=== PATIENT | male | born 1975 | race Caucasian/White ===

== ENCOUNTER 2017-09-18 11:23 | Observation (INO) | payer MEDICARE ==
--- NOTE | 2017-09-18 11:40 | PDOC ---
History of Present Illness - General History Source: Patient Exam Limitations: No Limitations - History of Present Illness Initial Comments: 09/18/17 14:14 Patient is a 42 year old male with a significant past medical history of 2 minor strokes, open heart surgery, who presents to the ED with complaints of chest pain that began this morning. Patient reports finding out 3 years ago that he had condition since of Bicuspid Aortic valve, due to a dental infection. He reports undergoing open heart surgery to have pig valve inserted. Patient reports waking up this morning and experiencing slight chest tightness while getting up for work that he states began to worry him. He reports taking one dose of 81 mg Baby Aspirin for pain with minimal relief. Patient states he experiencing irregular heartbeat, fluttering and left arm uncomfortability that prompted him to come into the ED. He reports having a prescription 80 mg of methadone, stating that he did not take his medication before coming. Denies nausea vomiting. Denies fevers chills. Denies contact with sick contacts , out of state travelling. Denies any other symptoms. Allergies: None Social history: Current smoker (4 cigarettes per day). Social drinking. Surgical history: Open heart surgery. Appendectomy PMD: None <Kvng Harris - Last Filed: 09/18/17 14:13> <Marialuisa Waters - Last Filed: 09/18/17 14:30> - General Chief Complaint: Chest Pain Stated Complaint: CHEST PAIN Time Seen by Provider: 09/18/17 11:40 Past History <Kvng Harris - Last Filed: 09/18/17 14:13> <Marialuisa Waters - Last Filed: 09/18/17 14:30> - Past Medical History Allergies/Adverse Reactions: Allergies Allergy/AdvReac Type Severity Reaction Status Date / Time No Known Allergies Allergy Verified 09/18/17 11:41 Home Medications: Ambulatory Orders Methadone [Dolophine -] 80 mg PO DAILY 09/18/17 Review of Systems - Review of Systems Able to Perform ROS?: Yes Comments:: 09/18/17 14:14 GENERAL/CONSTITUTIONAL: No fever or chills. No weakness. HEAD, EYES, EARS, NOSE AND THROAT: No change in vision. No ear pain or discharge. No sore throat. CARDIOVASCULAR: +Chest pain. +chest fluttering No shortness of breath. RESPIRATORY: No cough, wheezing, or hemoptysis. GASTROINTESTINAL: No nausea, vomiting, diarrhea or constipation. GENITOURINARY: No dysuria, frequency, or change in urination. MUSCULOSKELETAL: No joint or muscle swelling or pain. No neck or back pain. SKIN: No rash NEUROLOGIC: No headache, vertigo, loss of consciousness, or change in strength/ sensation. ENDOCRINE: No increased thirst. No abnormal weight change. HEMATOLOGIC/LYMPHATIC: No anemia, easy bleeding, or history of blood clots. ALLERGIC/IMMUNOLOGIC: No hives or skin allergy. All Other Systems: Reviewed and Negative <Kvng Harris - Last Filed: 09/18/17 14:13> *Physical Exam - Vital Signs Last Vital Signs Temp Pulse Resp BP Pulse Ox 97.7 F 86 20 136/89 100 09/18/17 11:36 09/18/17 12:02 09/18/17 12:02 09/18/17 12:02 09/18/17 13:56 - Physical Exam Comments: 09/18/17 14:14 GENERAL: Awake, alert, and fully oriented, in no acute distress HEAD: No signs of trauma EYES: PERRLA, EOMI, sclera anicteric, conjunctiva clear ENT: Auricles normal inspection, hearing grossly normal, nares patent, oropharynx clear without exudates. Moist mucosa NECK: Normal ROM, supple, no lymphadenopathy, JVD, or masses LUNGS: Breath sounds equal, clear to auscultation bilaterally. No wheezes, and no crackles HEART: +2/6 systolic murmur loudest over aortic valve Regular rate and rhythm, normal S1 and S2, no murmurs, rubs or gallops ABDOMEN: Soft, nontender, normoactive bowel sounds. No guarding, no rebound. No masses EXTREMITIES: Normal range of motion, no edema. No clubbing or cyanosis. No cords, erythema, or tenderness NEUROLOGICAL: Mood affect normal. Cranial nerves II through XII grossly intact. Normal speech, normal gait SKIN: Warm, Dry, normal turgor, no rashes or lesions noted. <Kvng Harris - Last Filed: 09/18/17 14:13> ED Treatment Course - LABORATORY CBC & Chemistry Diagram: 09/18/17 12:40 09/18/17 12:40 - ADDITIONAL ORDERS Additional order review: Laboratory Results 09/18/17 12:40 Sodium 138 Potassium 3.9 Chloride 104 Carbon Dioxide 25 Anion Gap 9 BUN 14 Creatinine 0.9 Creat Clearance w eGFR > 60 Random Glucose 123 H Calcium 7.9 L Total Bilirubin 0.4 AST 17 ALT 23 Alkaline Phosphatase 71 Creatine Kinase 242 Creatine Kinase Index 1.2 CK-MB (CK-2) 2.919 Troponin I < 0.02 Total Protein 6.7 Albumin 3.6 09/18/17 12:40 RBC 4.51 MCV 88.5 MCHC 33.3 RDW 13.7 MPV 8.4 Neutrophils % 58.7 Lymphocytes % 25.5 Monocytes % 8.1 Eosinophils % 7.1 H Basophils % 0.6 - Medications Given in the ED: ED Medications Discontinued Medications Generic Name Dose Route Start Last Admin Trade Name Freq PRN Reason Stop Dose Admin Aspirin 81 mg 09/18/17 12:16 09/18/17 12:30 Asa - PO 09/18/17 12:17 81 mg ONCE ONE Administration Methadone HCl 80 mg 09/18/17 12:43 09/18/17 13:05 Dolophine - PO 09/18/17 12:44 80 mg ONCE ONE Administration <Kvng Harris - Last Filed: 09/18/17 14:13> - LABORATORY CBC & Chemistry Diagram: 09/18/17 12:40 09/18/17 12:40 <Marialuisa Waters - Last Filed: 09/18/17 14:30> Medical Decision Making - Medical Decision Making 09/18/17 14:28 Pt presents to the ED complaining of substernal chest pain that started last night and is accompanied by mild shortness of breath. Concerning for valve leakage, less likely ACS. Patient appears comfortable on exam, unlikely to be acute valve rupture, but given the patient's history, will admit for observation and ECHO to rule out leaking valve. <Marialuisa Waters - Last Filed: 09/18/17 14:30> *DC/Admit/Observation/Transfer - Attestations Scribe Attestion: 09/18/17 14:14 Documentation prepared by Kvng Harris, acting as medical director for Marialuisa Waters MD, /DO. <Kvng Harris - Last Filed: 09/18/17 14:13> - Discharge Dispostion Admit: Yes <Marialuisa Waters - Last Filed: 09/18/17 14:30> Diagnosis at time of Disposition: Chest pain Qualifiers: Chest pain type: unspecified Qualified Code(s): R07.9 - Chest pain, unspecified - Discharge Dispostion Condition at time of disposition: Good
[2017-09-18] MEDS ORDERED: ASPIRIN 81 MG CHEWABLE TABLETS PO ONE (12:16)
[2017-09-18] MEDS ORDERED: ASPIRIN 81 MG CHEWABLE TABLETS ONE (12:30)
[2017-09-18] MEDS ORDERED: METHADONE HCL 10 MG TABLET PO ONE (12:43)
[2017-09-18 12:51] LABS: BASO % 0.6 % (0-2.0); EOS % 7.1 % (0-4.5); HEMATOCRIT 39.9 % (35.4-49); HEMOGLOBIN 13.3 GM/dL (11.7-16.9); LYMPH % 25.5 % (8-40); MCH 29.5 pg (25.7-33.7); MCHC 33.3 g/dl (32.0-35.9); MEAN CELL VOLUME 88.5 fl (80-96); MEAN PLT VOLUME 8.4 fl (7.5-11.1); MONO % 8.1 % (3.8-10.2); NEUT % 58.7 % (42.8-82.8); PLATELET COUNT 197 K/MM3 (134-434); RBC 4.51 M/mm3 (4.00-5.60); RDW 13.7 % (11.9-15.9); WHITE BLOOD COUNT 9.2 K/mm3 (4.0-10.0)
[2017-09-18] MEDS ORDERED: METHADONE HCL 40 MG DISPERSABLE TABLET ONE (13:02)
[2017-09-18 13:10] LABS: ALBUMIN 3.6 g/dl (3.4-5.0); ANION GAP 9 (8-16); BLOOD UREA NITROGEN 14 mg/dL (7-18); CALCIUM 7.9 mg/dL (8.5-10.1); CHLORIDE 104 mmol/L (98-107); CO2 25 mmol/L (21-32); GLUCOSE,RANDOM 123 mg/dL (74-106); POTASSIUM 3.9 mmol/L (3.5-5.1); SGPT/ALT 23 U/L (12-78); SODIUM 138 mmol/L (136-145)
[2017-09-18 13:15] LABS: ALK PHOS 71 U/L (45-117); BILIRUBIN,TOTAL 0.4 mg/dL (0.2-1.0); CREATININE 0.9 mg/dL (0.7-1.3); SGOT/AST 17 U/L (15-37); TOT PROT 6.7 g/dl (6.4-8.2)
--- NOTE | 2017-09-18 15:12 | EKG ---
Test Reason : Blood Pressure : / mmHG Vent. Rate : 090 BPM Atrial Rate : 090 BPM P-R Int : 118 ms QRS Dur : 108 ms QT Int : 394 ms P-R-T Axes : 040 -02 001 degrees QTc Int : 481 ms NORMAL SINUS RHYTHM INCOMPLETE RIGHT BUNDLE BRANCH BLOCK MODERATE VOLTAGE CRITERIA FOR LVH, MAY BE NORMAL VARIANT BORDERLINE ECG NO PREVIOUS ECGS AVAILABLE Confirmed by MD SARI, ABBIE ([id number]) on 09/18/2017 3:12:54 PM Referred By: Confirmed By:ABBIE GUO MD
--- NOTE | 2017-09-18 15:19 | HP ---
CHIEF COMPLAINT: "I have chest pain" PCP: None HISTORY OF PRESENT ILLNESS: This is a 42 yo M with PMH of bicuspid AV repair with bovine valve 3 yrs ago in [place], who presents to ED due to new onset CP since last night. Pain started suddenly last night after dinner, was midsternal, sharp, constant, nonreproducible, 6/10, radiating to L jaw and LUE with finger tingling but w/o diaphoresis or sob. He also reports palpitations and sensation of irregular heart rate. He denies pleuritic symptoms or exacerbation with activity. He has never had this sensation before. He reports frequent postprandial heartburn relieved by tums, but denies similarity in symptoms. He took asa 81 last night, which he takes daily, w/o relief. Pain continued until this morning, and almost subsided arrival to ED. 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 He reports history of early sudden in several uncles in their 30's and 40's due to cardiac causes. He reports unintentional weight loss of 10 lb over past 2 mo due to loss of appetite, heat/cold intolerance and hair thinning over the past 3 yrs. He denies orthopnea, LE edema, syncope, exercise intolerance, recent uri, cough , n/v, diarrhea, constipation, dysuria, melena, hemoptysis. 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 No insurance Smoking: daily smoker <pack/day Alcohol: drinks 4-5 beers on weekends Drugs: denies Family History: as above Allergies No Known Allergies Allergy (Verified 09/18/17 11:41) HOME MEDICATIONS: Home Medications Medication Instructions Recorded Aspirin [ASA -] 81 mg PO DAILY 09/18/17 Methadone [Dolophine -] 80 mg PO DAILY 09/18/17 REVIEW OF SYSTEMS CONSTITUTIONAL: Absent: fever, chills, diaphoresis, generalized weakness, malaise HEENT: Absent: rhinorrhea, nasal congestion, throat pain, throat swelling, difficulty swallowing CARDIOVASCULAR: Absent: syncope, lightheadedness, peripheral edema RESPIRATORY: Absent: cough, shortness of breath, dyspnea with exertion, orthopnea, wheezing, stridor, hemoptysis GASTROINTESTINAL: Absent: abdominal pain, abdominal distension, nausea, vomiting, diarrhea, constipation, melena, hematochezia GENITOURINARY: Absent: dysuria MUSCULOSKELETAL: Absent: back pain, neck pain SKIN: Absent: rash, itching, pallor HEMATOLOGIC/IMMUNOLOGIC: Absent: easy bleeding, easy bruising ENDOCRINE: + unexplained weight loss, heat intolerance, cold intolerance NEUROLOGIC: Absent: headache, focal weakness or paresthesias, PSYCHIATRIC: Absent: depression +anxiety PHYSICAL EXAMINATION Vital Signs - 24 hr 09/18/17 09/18/17 09/18/17 11:36 12:02 13:56 Temperature 97.7 F Pulse Rate 74 Pulse Rate [ 86 Left Radial] Respiratory 22 20 Rate Blood Pressure 139/87 Blood Pressure 136/89 [Left Arm] O2 Sat by Pulse 100 100 100 Oximetry (%) GENERAL: Awake, alert, and fully oriented, in no acute distress. HEAD: Normal with no signs of trauma. EYES: Pupils equal, round and reactive to light, extraocular movements intact, sclera anicteric, conjunctiva clear. No lid lag. EARS, NOSE, THROAT: Moist mucous membranes. NECK: supple without JVD or thyromegaly, o hepatojugular reflex LUNGS: Breath sounds equal, clear to auscultation bilaterally. HEART: Regular rate and rhythm, normal S1 and S2, grade II systolic ej murmur ABDOMEN: Soft, nontender, not distended, normoactive bowel sounds, no guarding, no rebound, no masses. MUSCULOSKELETAL: No CVA tenderness. UPPER EXTREMITIES: 2+ pulses, warm, well-perfused. No peripheral edema. LOWER EXTREMITIES: 2+ pulses, warm, well-perfused. No calf tenderness. No peripheral edema. NEUROLOGICAL: Cranial nerves II-XII grossly intact. Normal speech. PSYCHIATRIC: Cooperative. Good eye contact. Appropriate mood and affect. SKIN: Warm, dry Laboratory Results - last 24 hr 09/18/17 09/18/17 12:40 12:40 WBC 9.2 RBC 4.51 Hgb 13.3 Hct 39.9 MCV 88.5 MCH 29.5 MCHC 33.3 RDW 13.7 Plt Count 197 MPV 8.4 Neutrophils % 58.7 Lymphocytes % 25.5 Monocytes % 8.1 Eosinophils % 7.1 H Basophils % 0.6 Sodium 138 Potassium 3.9 Chloride 104 Carbon Dioxide 25 Anion Gap 9 BUN 14 Creatinine 0.9 Creat Clearance w eGFR > 60 Random Glucose 123 H Calcium 7.9 L Total Bilirubin 0.4 AST 17 ALT 23 Alkaline Phosphatase 71 Creatine Kinase 242 Creatine Kinase Index 1.2 CK-MB (CK-2) 2.919 Troponin I < 0.02 Total Protein 6.7 Albumin 3.6 ASSESSMENT/PLAN: This is a 42 yo M with PMH of bicuspid AV repair with bovine valve 3 yrs ago in [place], who presents to ED due to new onset CP since last night. Chest pain h/o bioprosthetic AV repair -ekg no evidence of ACS, +LVH, incomplete RBBB; repeat AM -trop - x1, trend x 3 -r/o endocrine and electrolyte abnormality; f/u TSH fT4, A1c, Lipid panel, mag, phos -f/u TTE -cardio consult -tele monitoring -continue ASA 81 Dispo: obs tele Problem List - Problem (1) History of aortic valve replacement with bioprosthetic valve Code(s): Z98.890 - OTHER SPECIFIED POSTPROCEDURAL STATES; Z95.3 - PRESENCE OF XENOGENIC HEART VALVE (2) Chest pain Code(s): R07.9 - CHEST PAIN, UNSPECIFIED Qualifiers: Chest pain type: unspecified Qualified Code(s): R07.9 - Chest pain, unspecified Visit type - Emergency Visit Emergency Visit: Yes Care time: The patient presented to the Emergency Department on the above date and was hospitalized for further evaluation of their emergent condition. - New Patient This patient is new to me today: Yes Date on this admission: 09/18/17 - Critical Care Critical Care patient: No
--- NOTE | 2017-09-18 17:25 | PN ---
Teaching Attending Note Name of Resident: Niecy Cagle ATTENDING PHYSICIAN STATEMENT I saw and evaluated the patient. I reviewed the resident's note and discussed the case with the resident. I agree with the resident's findings and plan as documented. SUBJECTIVE: Patient has no chest pain at this time. OBJECTIVE: Vital Signs Temperature 97.7 F 09/18/17 11:36 Pulse Rate 86 09/18/17 12:02 Respiratory Rate 20 09/18/17 12:02 Blood Pressure 136/89 09/18/17 12:02 O2 Sat by Pulse Oximetry (%) 100 09/18/17 13:56 CBCD WBC 9.2 K/mm3 (4.0-10.0) 09/18/17 12:40 RBC 4.51 M/mm3 (4.00-5.60) 09/18/17 12:40 Hgb 13.3 GM/dL (11.7-16.9) 09/18/17 12:40 Hct 39.9 % (35.4-49) 09/18/17 12:40 MCV 88.5 fl (80-96) 09/18/17 12:40 MCHC 33.3 g/dl (32.0-35.9) 09/18/17 12:40 RDW 13.7 % (11.9-15.9) 09/18/17 12:40 Plt Count 197 K/MM3 (134-434) 09/18/17 12:40 MPV 8.4 fl (7.5-11.1) 09/18/17 12:40 CMP Sodium 138 mmol/L (136-145) 09/18/17 12:40 Potassium 3.9 mmol/L (3.5-5.1) 09/18/17 12:40 Chloride 104 mmol/L (98-107) 09/18/17 12:40 Carbon Dioxide 25 mmol/L (21-32) 09/18/17 12:40 Anion Gap 9 (8-16) 09/18/17 12:40 BUN 14 mg/dL (7-18) 09/18/17 12:40 Creatinine 0.9 mg/dL (0.7-1.3) 09/18/17 12:40 Creat Clearance w eGFR > 60 (>60) 09/18/17 12:40 Random Glucose 123 mg/dL (74-106) H 09/18/17 12:40 Calcium 7.9 mg/dL (8.5-10.1) L 09/18/17 12:40 Total Bilirubin 0.4 mg/dL (0.2-1.0) 09/18/17 12:40 AST 17 U/L (15-37) 09/18/17 12:40 ALT 23 U/L (12-78) 09/18/17 12:40 Alkaline Phosphatase 71 U/L (45-117) 09/18/17 12:40 Total Protein 6.7 g/dl (6.4-8.2) 09/18/17 12:40 Albumin 3.6 g/dl (3.4-5.0) 09/18/17 12:40 CARDIAC ENZYMES Creatine Kinase 242 IU/L (39-308) 09/18/17 12:40 Troponin I < 0.02 ng/ml (0.00-0.05) 09/18/17 12:40 Current Medications Generic Name Dose Route Start Last Admin Trade Name Carlos PRN Reason Stop Dose Admin Aspirin 81 mg 09/19/17 10:00 Asa - PO DAILY [facility] Methadone HCl 80 mg 09/19/17 10:00 Dolophine - PO DAILY [facility] Home Medications Medication Instructions Recorded Aspirin [ASA -] 81 mg PO DAILY 09/18/17 Methadone [Dolophine -] 80 mg PO DAILY 09/18/17 PE: ASSESSMENT AND PLAN: This is a 42 yo M with PMH of bicuspid AV repair with bovine valve 3 yrs ago in [place], who presents to ED due to new onset CP since last night. # Acute Chest pain r/o ACS, repeat trop, EKG, cardio consult dr Tobias, echo ordered ;EKG: LVH, incomplete RBBB check TSH , A1c, Lipid panel, mag, phos, continue ASa , Dispo: obs tele
[2017-09-18 18:32] LABS: HDL CHOLESTEROL 36 mg/dL (40-60); LDL CHOLESTEROL (ONLY SJRH) 137 mg/dL (5-100); MAGNESIUM 2.2 mg/dL (1.8-2.4); PHOSPHOROUS 3.6 mg/dL (2.5-4.9); TRIGLYCERIDES 231 mg/dL (35-160)
[2017-09-18 18:40] LABS: CHOLESTEROL 211 mg/dL (50-200)
--- NOTE | 2017-09-18 20:31 | CON.CARD ---
Consult Consult Specialty:: Cardiology Referred by:: Hospitalist Medicine Reason for Consultation:: Chest pain - History of Present Illness Chief Complaint: Chest pain History of Present Illness: This is a 42 yo M with PMH of bicuspid AV repair with bovine valve 3 yrs ago in [place], who presents to ED due to new onset CP since last night. Pain started suddenly last night after dinner, was midsternal, sharp, constant, nonreproducible, 6/10, radiating to L jaw and LUE with finger tingling but w/o diaphoresis or sob. He also reports palpitations and sensation of irregular heart rate. He denies pleuritic symptoms or exacerbation with activity. He has never had this sensation before. He reports frequent postprandial heartburn relieved by tums, but denies similarity in symptoms. He took asa 81 last night, which he takes daily, w/o relief. Pain continued until this morning, and almost subsided arrival to ED. 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 He reports history of early sudden in several uncles in their 30's and 40's due to cardiac causes. He reports unintentional weight loss of 10 lb over past 2 mo due to loss of appetite, heat/cold intolerance and hair thinning over the past 3 yrs. He denies orthopnea, LE edema, syncope, exercise intolerance, recent uri, cough , n/v, diarrhea, constipation, dysuria, melena, hemoptysis. ER course was notable for: (1)cxr: increased intersititial markings, no acute pathology (2)ekg: LVH, incomplete RBBB, borderline prolonged QTc, no evidence of acs (3)labs - Alcohol/Substance Use Hx Alcohol Use: No - Smoking History Smoking history: Never smoked Have you smoked in the past 12 months: No Home Medications - Allergies Allergies/Adverse Reactions: Allergies Allergy/AdvReac Type Severity Reaction Status Date / Time No Known Allergies Allergy Verified 09/18/17 11:41 - Home Medications Home Medications: Ambulatory Orders Aspirin [ASA -] 81 mg PO DAILY 09/18/17 Methadone [Dolophine -] 80 mg PO DAILY 09/18/17 Vital Signs: Vital Signs Temperature 97.7 F 09/18/17 11:36 Pulse Rate 82 09/18/17 18:36 Respiratory Rate 20 09/18/17 18:36 Blood Pressure 142/98 09/18/17 18:36 O2 Sat by Pulse Oximetry (%) 100 09/18/17 13:56 - Other Data Labs, Other Data: CBC, BMP 09/18/17 12:40 09/18/17 12:40 Troponin, BNP 09/18/17 09/18/17 12:40 17:46 Troponin I < 0.02 < 0.02 Troponin, BNP 09/18/17 09/18/17 12:40 17:46 Troponin I < 0.02 < 0.02
--- NOTE | 2017-09-18 21:03 | PN ---
Progress Note (short form) - Note Progress Note: Attempted to see patient in ER, but patient was not in bed and staff unable to locate. Will see another day, thanks for consult.
[2017-09-19 06:20] LABS: HEMATOCRIT 38.1 % (35.4-49); HEMOGLOBIN 12.8 GM/dL (11.7-16.9); MCH 29.9 pg (25.7-33.7); MCHC 33.6 g/dl (32.0-35.9); MEAN CELL VOLUME 89.1 fl (80-96); PLATELET COUNT 196 K/MM3 (134-434); RBC 4.27 M/mm3 (4.00-5.60); RDW 13.7 % (11.9-15.9); WHITE BLOOD COUNT 8.4 K/mm3 (4.0-10.0)
[2017-09-19 06:54] LABS: ANION GAP 4 (8-16); BLOOD UREA NITROGEN 12 mg/dL (7-18); CALCIUM 8.1 mg/dL (8.5-10.1); CHLORIDE 107 mmol/L (98-107); CO2 31 mmol/L (21-32); GLUCOSE,RANDOM 100 mg/dL (74-106); MAGNESIUM 2.2 mg/dL (1.8-2.4); PHOSPHOROUS 4.2 mg/dL (2.5-4.9); POTASSIUM 4.2 mmol/L (3.5-5.1); SODIUM 142 mmol/L (136-145)
[2017-09-19 07:01] VITALS: PULSE 72
[2017-09-19] MEDS ORDERED: METHADONE HCL 40 MG DISPERSABLE TABLET PO SCH (08:00)
[2017-09-19] MEDS ORDERED: ASPIRIN 81 MG CHEWABLE TABLETS ONE (08:57)
[2017-09-19] MEDS ORDERED: ASPIRIN 81 MG CHEWABLE TABLETS PO SCH (10:00)
[2017-09-19 12:07] VITALS: BP 121/76; TEMP 98.5
[2017-09-19] MEDS ORDERED: NICOTINE 7 MG/24 HOURS TOPICAL PATCH TD SCH (13:30)
--- NOTE | 2017-09-19 15:20 | EKG ---
Test Reason : Blood Pressure : / mmHG Vent. Rate : 062 BPM Atrial Rate : 062 BPM P-R Int : 122 ms QRS Dur : 116 ms QT Int : 468 ms P-R-T Axes : 038 -06 -01 degrees QTc Int : 475 ms NORMAL SINUS RHYTHM RIGHT BUNDLE BRANCH BLOCK LEFT VENTRICULAR HYPERTROPHY ABNORMAL ECG WHEN COMPARED WITH ECG OF 18-SEP-2017 11:29, NONSPECIFIC T WAVE ABNORMALITY NO LONGER EVIDENT IN ANTEROLATERAL LEADS Confirmed by Rahul Young ([id number]) on 09/19/2017 3:19:40 PM Referred By: Art LARKIN Confirmed By:Rahul Young
--- NOTE | 2017-09-19 16:30 | PN ---
Physical Exam: SUBJECTIVE: Patient seen and examined OBJECTIVE: Vital Signs Temperature 98.5 F 09/19/17 10:00 Pulse Rate 72 09/19/17 10:00 Respiratory Rate 20 09/19/17 10:00 Blood Pressure 121/76 09/19/17 10:00 O2 Sat by Pulse Oximetry (%) 100 09/19/17 10:00 GENERAL: The patient is awake, alert, and fully oriented, in no acute distress. HEAD: Normal with no signs of trauma. EYES: PERRL, extraocular movements intact, sclera anicteric, conjunctiva clear. No ptosis. ENT: Ears normal, nares patent, oropharynx clear without exudates, moist mucous membranes. NECK: Trachea midline, full range of motion, supple. LUNGS: Breath sounds equal, clear to auscultation bilaterally, no wheezes, no crackles, no accessory muscle use. HEART: Regular rate and rhythm, S1, S2 without murmur, rub or gallop. ABDOMEN: Soft, nontender, nondistended, normoactive bowel sounds, no guarding, no rebound, no hepatosplenomegaly, no masses. EXTREMITIES: 2+ pulses, warm, well-perfused, no edema. NEUROLOGICAL: Cranial nerves II through XII grossly intact. Normal speech, gait not observed. PSYCH: Normal mood, normal affect. SKIN: Warm, dry, normal turgor, no rashes or lesions noted CBCD WBC 8.4 K/mm3 (4.0-10.0) 09/19/17 05:45 RBC 4.27 M/mm3 (4.00-5.60) 09/19/17 05:45 Hgb 12.8 GM/dL (11.7-16.9) 09/19/17 05:45 Hct 38.1 % (35.4-49) 09/19/17 05:45 MCV 89.1 fl (80-96) 09/19/17 05:45 MCHC 33.6 g/dl (32.0-35.9) 09/19/17 05:45 RDW 13.7 % (11.9-15.9) 09/19/17 05:45 Plt Count 196 K/MM3 (134-434) 09/19/17 05:45 MPV 9.0 fl (7.5-11.1) 09/19/17 05:45 CMP Sodium 142 mmol/L (136-145) 09/19/17 05:45 Potassium 4.2 mmol/L (3.5-5.1) 09/19/17 05:45 Chloride 107 mmol/L (98-107) 09/19/17 05:45 Carbon Dioxide 31 mmol/L (21-32) D 09/19/17 05:45 Anion Gap 4 (8-16) L 09/19/17 05:45 BUN 12 mg/dL (7-18) 09/19/17 05:45 Creatinine 1.0 mg/dL (0.7-1.3) 09/19/17 05:45 Creat Clearance w eGFR > 60 (>60) 09/18/17 12:40 Random Glucose 100 mg/dL (74-106) 09/19/17 05:45 Calcium 8.1 mg/dL (8.5-10.1) L 09/19/17 05:45 Total Bilirubin 0.4 mg/dL (0.2-1.0) 09/18/17 12:40 AST 17 U/L (15-37) 09/18/17 12:40 ALT 23 U/L (12-78) 09/18/17 12:40 Alkaline Phosphatase 71 U/L (45-117) 09/18/17 12:40 Total Protein 6.7 g/dl (6.4-8.2) 09/18/17 12:40 Albumin 3.6 g/dl (3.4-5.0) 09/18/17 12:40 CARDIAC ENZYMES Creatine Kinase 242 IU/L (39-308) 09/18/17 12:40 Troponin I < 0.02 ng/ml (0.00-0.05) 09/19/17 01:45 Active Medications Generic Name Dose Route Start Last Admin Trade Name Freq PRN Reason Stop Dose Admin Aspirin 81 mg 09/19/17 10:00 09/19/17 09:00 Asa - PO 81 mg DAILY [facility] Administration Atorvastatin Calcium 20 mg 09/19/17 22:00 Lipitor - PO HS [facility] Methadone HCl 80 mg 09/19/17 08:00 09/19/17 09:01 Dolophine - PO 80 mg DAILY@0600 [facility] Administration Nicotine 7 mg 09/19/17 13:30 Nicoderm Patch - TD DAILY [facility] Home Medications Medication Instructions Recorded Aspirin [ASA -] 81 mg PO DAILY 09/18/17 Methadone [Dolophine -] 80 mg PO DAILY 09/18/17 ASSESSMENT/PLAN: This is a 42 yo M with PMH of bicuspid AV repair with bovine valve 3 yrs ago in [place], who presents to ED due to new onset CP since last night. # Acute Chest pain r/o ACS, repeat trop, EKG, cardio consult dr Tobias, echo ordered ;EKG: LVH, incomplete RBBB check TSH , A1c, Lipid panel, mag, phos, continue ASa , Dispo: obs tele
--- NOTE | 2017-09-19 16:34 | DS ---
Physical Exam: SUBJECTIVE: Patient seen and examined OBJECTIVE: Patient has no further chest pain, would like to go home PHYSICAL EXAM Vital Signs Temperature 98.5 F 09/19/17 10:00 Pulse Rate 72 09/19/17 10:00 Respiratory Rate 20 09/19/17 10:00 Blood Pressure 121/76 09/19/17 10:00 O2 Sat by Pulse Oximetry (%) 100 09/19/17 10:00 GENERAL: The patient is awake, alert, and fully oriented, in no acute distress. HEAD: Normal with no signs of trauma. EYES: PERRL, extraocular movements intact, sclera anicteric, conjunctiva clear. ENT: Ears normal, oropharynx clear without exudates, moist mucous membranes. NECK: Trachea midline, full range of motion, supple. LUNGS: Breath sounds equal, clear to auscultation bilaterally, no wheezes, no crackles, no accessory muscle use. HEART: Regular rate and rhythm, S1, S2 without murmur, rub or gallop. ABDOMEN: Soft, nontender, nondistended, normoactive bowel sounds, no guarding, no rebound, no hepatosplenomegaly, no masses. EXTREMITIES: 2+ pulses, warm, well-perfused, no edema. NEUROLOGICAL: Cranial nerves II through XII grossly intact. Normal speech, gait not observed. PSYCH: Normal mood, normal affect. SKIN: Warm, dry, normal turgor, no rashes or lesions noted. LABS CBCD WBC 8.4 K/mm3 (4.0-10.0) 09/19/17 05:45 RBC 4.27 M/mm3 (4.00-5.60) 09/19/17 05:45 Hgb 12.8 GM/dL (11.7-16.9) 09/19/17 05:45 Hct 38.1 % (35.4-49) 09/19/17 05:45 MCV 89.1 fl (80-96) 09/19/17 05:45 MCHC 33.6 g/dl (32.0-35.9) 09/19/17 05:45 RDW 13.7 % (11.9-15.9) 09/19/17 05:45 Plt Count 196 K/MM3 (134-434) 09/19/17 05:45 MPV 9.0 fl (7.5-11.1) 09/19/17 05:45 CMP Sodium 142 mmol/L (136-145) 09/19/17 05:45 Potassium 4.2 mmol/L (3.5-5.1) 09/19/17 05:45 Chloride 107 mmol/L (98-107) 09/19/17 05:45 Carbon Dioxide 31 mmol/L (21-32) D 09/19/17 05:45 Anion Gap 4 (8-16) L 09/19/17 05:45 BUN 12 mg/dL (7-18) 09/19/17 05:45 Creatinine 1.0 mg/dL (0.7-1.3) 09/19/17 05:45 Creat Clearance w eGFR > 60 (>60) 09/18/17 12:40 Random Glucose 100 mg/dL (74-106) 09/19/17 05:45 Calcium 8.1 mg/dL (8.5-10.1) L 09/19/17 05:45 Total Bilirubin 0.4 mg/dL (0.2-1.0) 09/18/17 12:40 AST 17 U/L (15-37) 09/18/17 12:40 ALT 23 U/L (12-78) 09/18/17 12:40 Alkaline Phosphatase 71 U/L (45-117) 09/18/17 12:40 Total Protein 6.7 g/dl (6.4-8.2) 09/18/17 12:40 Albumin 3.6 g/dl (3.4-5.0) 09/18/17 12:40 CARDIAC ENZYMES Creatine Kinase 242 IU/L (39-308) 09/18/17 12:40 Troponin I < 0.02 ng/ml (0.00-0.05) 09/19/17 01:45 Current Medications Generic Name Dose Route Start Last Admin Trade Name Freq PRN Reason Stop Dose Admin Aspirin 81 mg 09/19/17 10:00 09/19/17 09:00 Asa - PO 81 mg DAILY [facility] Administration Atorvastatin Calcium 20 mg 09/19/17 22:00 Lipitor - PO HS BIJU Methadone HCl 80 mg 09/19/17 08:00 09/19/17 09:01 Dolophine - PO 80 mg DAILY@0600 [facility] Administration Nicotine 7 mg 09/19/17 13:30 Nicoderm Patch - TD DAILY [facility] Home Medications Medication Instructions Recorded Aspirin [ASA -] 81 mg PO DAILY 09/18/17 Methadone [Dolophine -] 80 mg PO DAILY 09/18/17 HOSPITAL COURSE: Date of Admission:09/18/17 Date of Discharge: 09/19/17 This is a 42 yo M with PMH of bicuspid AV repair with bovine valve 3 yrs ago in [place], who presents to ED due to new onset CP x 1 day. # Acute Chest pain , TX is ruled out , 3 sets of troponin are negative ,EKG no st elevation or depression , cardio consult appreciated dr Tobias, discussed with and it's ok to discharge the patient home with follow visit by next week for holter monitor and stress test .EKG: LVH, incomplete RBBB continue aspirin # HLD newly diagnosed elevated LDL , need to be below 70 , started the patient on Lipitor 20mg and follow up with primary and cardiologists is needed. patient is discharged home Minutes to complete discharge: 35 Discharge Summary Reason For Visit: CHEST PAIN Current Active Problems Chest pain (Acute) History of aortic valve replacement with bioprosthetic valve (Acute) Condition: Stable - Instructions Diet, Activity, Other Instructions: Lipitor 20mg po daily continue since you have elevated lipid profile follow with your primary, if you don't have one will refer you to Please make an appointment with your heart doctor (Dr. Tobias) for a stress test and holter monitor. Referrals: Chandler Villarreal MD [Staff Physician] - 1 Week Vinnie Tobias MD [Staff Physician] - 09/22/17 Disposition: HOME - Home Medications Comprehensive Discharge Medication List: Ambulatory Orders Aspirin [ASA -] 81 mg PO DAILY 09/18/17 Methadone [Dolophine -] 80 mg PO DAILY 09/18/17 This patient is new to me today: Yes Date on this admission: 09/19/17 Emergency Visit: Yes ED Registration Date: 09/18/17 Care time: The patient presented to the Emergency Department on the above date and was hospitalized for further evaluation of their emergent condition. Critical Care patient: No - Discharge Referral Referred to [facility] No
--- NOTE | 2017-09-19 17:49 | CON.CARD ---
Consult Consult Specialty:: Cardiology Referred by:: Hospitalist Medicine Reason for Consultation:: Chest pain - History of Present Illness Chief Complaint: Chest pain History of Present Illness: This is a 42 yo M with PMH of bicuspid AV repair with bovine pericardial valve 3.5 yrs ago in [facility], presented with chest tightness, palpitations without associated dysnpea, near or true syncope, orthopnea, PND or LE edema. No further recurrence since admission, ruled out for OK, echo shows well-seated bioAVR w/o sig valve abnl, ruled out for OK, telemetry without events. - History Source History Provided By: Patient Limitations to Obtaining History: No Limitations - Past Surgical History Past Surgical History: Yes: Valve Replacement - Alcohol/Substance Use Hx Alcohol Use: Yes - Smoking History Smoking history: Current every day smoker Have you smoked in the past 12 months: Yes Home Medications - Allergies Allergies/Adverse Reactions: Allergies Allergy/AdvReac Type Severity Reaction Status Date / Time No Known Allergies Allergy Verified 09/18/17 11:41 - Home Medications Home Medications: Ambulatory Orders Aspirin [ASA -] 81 mg PO DAILY 09/18/17 Methadone [Dolophine -] 80 mg PO DAILY 09/18/17 Atorvastatin Ca [Lipitor] 20 mg PO HS #30 tablet 09/19/17 Review of Systems - Review of Systems Cardiovascular: reports: Chest Pain, Palpitations - Risk Factors Known Risk Factors: Yes: Hypercholesterolemia Vital Signs: Vital Signs Temperature 98.5 F 09/19/17 10:00 Pulse Rate 72 09/19/17 10:00 Respiratory Rate 20 09/19/17 10:00 Blood Pressure 121/76 09/19/17 10:00 O2 Sat by Pulse Oximetry (%) 100 09/19/17 10:00 Constitutional: Yes: No Distress, Calm Neck: Yes: Supple Respiratory: Yes: Regular, CTA Bilaterally Gastrointestinal: Yes: Normal Bowel Sounds, Soft Cardiovascular: Yes: Regular Rate and Rhythm JVD: No Carotid Bruit: No Heart Sounds: Yes: S1, S2 Edema: No - Other Data Labs, Other Data: CBC, BMP 09/19/17 05:45 09/19/17 05:45 Troponin, BNP 09/18/17 09/19/17 17:46 01:45 Troponin I < 0.02 < 0.02 Troponin, BNP 01/19/18 01/20/18 17:46 01:45 Troponin I < 0.02 < 0.02 NSR @ 62 RBBB, LVH Prior Cardiac Procedures: Valve Surgery Ejection Fraction %: LVEF > or = 40 % Problem List - Problems (1) Hyperlipidemia Code(s): E78.5 - HYPERLIPIDEMIA, UNSPECIFIED Qualifiers: Hyperlipidemia type: mixed hyperlipidemia Qualified Code(s): E78.2 - Mixed hyperlipidemia (2) Palpitations Code(s): R00.2 - PALPITATIONS (3) Tobacco abuse Code(s): Z72.0 - TOBACCO USE (4) Methadone dependence Code(s): F11.20 - OPIOID DEPENDENCE, UNCOMPLICATED (5) Chest pain Code(s): R07.9 - CHEST PAIN, UNSPECIFIED Qualifiers: Chest pain type: unspecified Qualified Code(s): R07.9 - Chest pain, unspecified (6) History of aortic valve replacement with bioprosthetic valve Code(s): Z98.890 - OTHER SPECIFIED POSTPROCEDURAL STATES; Z95.3 - PRESENCE OF XENOGENIC HEART VALVE Assessment/Plan 09/18/2017 Echo: Normal biventricular size and fxn, bioAVR with normal opening w/ o sig AR, normal atrial sizes, tr [place] 1. Chest pain syndrome 2. Palpitations r/o sustained tacharrhythmia, PAC, PVC 3. Bicuspid aortic valve s/p bioprosthetic aortic valve replacement 4. Hyperlipidemia 5. Methadone dependence 6. Tobacco abuse P:1. Ruled out for OK, no events on telemetry 2. May d/c from CV-standpoint with f/u in office , will benefit from outpatient stress testing and holter monitoring 3. Continue ASA 81 qd, Lipitor 20 qhs per lipid panel, dental prophylaxis 4. Thank you for consultative opportunity
[2017-09-19] MEDS ORDERED: ATORVASTATIN CA 40 MG TABLET (FP) PO SCH ×2 (22:00)
== END 2017-09-19 18:44 | disposition home or self-care (01) ==
LOC: JER 11:23 → JERBED 14:31 → J2W 09-19 00:20
PROVIDERS: ADMIT Internal Medicine; ATTEND Internal Medicine
DX: R07.9 Chest pain, unspecified (principal); I45.10 Unspecified right bundle-branch block; E78.5 Hyperlipidemia, unspecified; R00.2 Palpitations; F11.20 Opioid dependence, uncomplicated; Z95.3 Presence of xenogenic heart valve; Z86.73 Personal history of transient ischemic attack (TIA), and cerebral infarction without residual deficits; Z79.82 Long term (current) use of aspirin; Z72.0 Tobacco use
CPT/HCPCS: 36415; 71045-TC; 80048; 80053; 80061; 82550; 82553; 83036; 83721; 83735; 84100; 84439; 84443; 84484; 85025; 85027; 93005; 93010; 93306-TC; 99285-25; G0378